=== PATIENT | female | born 1985 | race Caucasian/White ===

== ENCOUNTER 2016-12-01 13:53 | Emergency (ER) | payer MEDICAID ==
[~2016-12-01] VITALS: Ht 160 cm; Wt 57.2 kg
[2016-12-01] MEDS ORDERED: IBUPROFEN600 MG ORAL (14:50)
[2016-12-01 14:56] VITALS: BP 111/71
--- NOTE | 2016-12-01 15:15 | Emergency Room Report ---
History of Present Illness General Chief Complaint: Lower Extremity Injury Source: Patient Present Illness HPI The patient is a 31-year-old female presenting for right ankle pain. She states that she tripped yesterday and felt the ankle folded underneath her. She denies falling. Pain is a 6/10 dull ache and does not radiate. Worse with walking. She denies previous injury to this area. She denies any other symptoms Allergies: Coded Allergies: PENICILLINS (Verified Allergy, Unknown, 12/01/16) Patient History Past Medical History: see triage record Pertinent Family History: none Reviewed Nursing Documentation: PMH: Agreed, PSxH: Agreed Nursing Documentation-PM Past Medical History: No Stated History Review of Systems All Other Systems: negative except mentioned in HPI Physical Exam Vital Signs Date Time Temp Pulse Resp B/P Pulse Ox O2 Delivery O2 Flow Rate FiO2 12/01/16 13:58 97.3 68 20 109/69 99 Room Air Sp02 EP Interpretation: reviewed, normal General Appearance: no apparent distress, alert, GCS 15, non-toxic Head: normocephalic, atraumatic Eyes: bilateral eye PERRL, bilateral eye normal inspection Musculoskeletal: normal inspection, normal range of motion, tender - TTP over the R ankle both medial and lateral Neurologic: alert, oriented x3, responsive, motor strength/tone normal, sensory intact, speech normal Psychiatric: judgement/insight normal, memory normal, mood/affect normal, no suicidal/homicidal ideation Skin: normal color, no rash, warm/dry, well hydrated Procedures Splinting Splinting : Consent: Verbal Location: R ankle Pre-Made Type: ROSEMARY wrap Pre-Proc Neuro Vasc Exam: normal Post-Proc Neuro Vasc Exam: normal Patient Tolerated: Well Complications: None Medical Decision Making PA Attestation Dr. Milligan is my supervising physician. Patient management was discussed with my supervising physician Diagnostic Impression: Primary Impression: Ankle sprain Qualified Codes: S93.401A - Sprain of unspecified ligament of right ankle, initial encounter ER Course The patient is a 31-year-old female presenting for right ankle pain. Ddx considered include but not limited to sprain/strain, fracture, contusion Physical exam: No apparent distress Right ankle: There is tenderness to palpation over the R medial and lateral malleolus. No edema. Full active range of motion. Sensation intact to light touch. X-ray of the R ankle is unremarkable R ankle placed in ROSEMARY wrap. The patient has crutches with her. ER precautions are given. Patient given prescription for Motrin and will follow up with primary care physician. RICE instructions given Other X-Ray Diagnostic Results Other X-Ray Diagnostic Results : X-Ray ordered: R Ankle # of Views/Limited Vs Complete: 3 View Indication: Pain EP Interpretation: Yes Interpretation: no dislocation, no soft tissue swelling, no fractures Impression: No acute disease Interpreting ER Provider: Winston Milligan MD PA Scribe Text I am acting as scribe for my supervising physician. My supervising physician's interpretation of the R ankle xrays are there are no fractures, dislocations or soft tissue swelling. Last Vital Signs Date Time Temp Pulse Resp B/P Pulse Ox O2 Delivery O2 Flow Rate FiO2 12/01/16 14:56 72 18 111/71 99 Room Air 12/01/16 13:58 97.3 Status: improved Disposition: HOME, SELF-CARE Condition: Improved Scripts Ibuprofen* (MOTRIN*) 600 Mg Tablet 600 MG ORAL Q8H Y for For Pain, #30 TAB 0 Refills Prov: SANTANA RILEY 12/01/16 Patient Instructions: Ankle Sprain Additional Instructions: I discussed my findings with the patient. All questions and concerns have been answered. Treatment and medication compliance have been addressed. I advised the patient that they need to follow up with PMD in 3-5 days. Return to ED if pain remains or worsens, numbness or tingling occurs, new rash is noticed, fever is noticed, or if needed for any reason. Patient verbalized understanding of discharge instructions. SANTANA RILEY Dec 01, 2016 15:15
--- NOTE | 2016-12-01 15:15 | Diagnostic Imaging Report ---
Indications: Right ankle pain since trip and fall last night Technique: 3 views right ankle. Findings: Comparison: None No fracture, dislocation, joint space widening , surrounding soft tissue swelling/foreign body/gas, or other acute changes are identified. IMPRESSION: No evidence of acute injury to the right ankle.
== END 2016-12-01 14:57 | disposition home or self-care (01) ==
LOC: EMR 14:15
DX: S93.401A Sprain of unspecified ligament of right ankle, initial encounter (principal); W01.0XXA Fall on same level from slipping, tripping and stumbling without subsequent striking against object, initial encounter; Y93.9 Activity, unspecified; Y92.9 Unspecified place or not applicable; Z88.0 Allergy status to penicillin
CPT/HCPCS: 99283

== ENCOUNTER 2017-05-26 15:43 | Emergency (ER) | payer MEDICAID ==
[~2017-05-26] VITALS: Ht 160 cm; Wt 53.5 kg
[~2017-05-26 15:43] MED LIST: IBUPROFEN600 MG ORAL
[2017-05-26 18:04] LABS: APPEARANCE,URINE CLEAR; BILIRUBIN, URINE NEGATIVE (NEGATIVE); COLOR,URINE PALE YELLOW; GLUCOSE, URINE (UA) NEGATIVE (NEGATIVE); KETONES,URINE NEGATIVE (NEGATIVE); LEUKOCYTE ESTERASE ,URINE NEGATIVE (NEGATIVE); NITRITE,URINE NEGATIVE (NEGATIVE); PH,URINE 7 (4.5-8.0); PROTEIN,URINE NEGATIVE (NEGATIVE); UROBILINOGEN,URINE NORMAL MG/DL (0.0-1.0)
[2017-05-26 18:06] LABS: BASOPHILS % (AUTO) 0.6 % (0.0-2.0); EOSINOPHILS % (AUTO) 1.8 % (0.0-3.0); HEMATOCRIT 40.7 % (37.0-47.0); HEMOGLOBIN 14.7 G/DL (12.0-16.0); LYMPHOCYTES % (AUTO) 32.2 % (20.0-45.0); MEAN CORPUSCULAR VOLUME 91 FL (80-99); MONOCYTES % (AUTO) 13.4 % (1.0-10.0); NEUTROPHILS % (AUTO) 52.1 % (45.0-75.0); PLATELET COUNT 182 K/UL (150-450); RED BLOOD COUNT 4.45 M/UL (4.20-5.40); RED CELL DISTRIBUTION WIDTH 10.6 % (11.6-14.8)
[2017-05-26 18:11] VITALS: BP 92/62
[2017-05-26 18:18] LABS: ANION GAP 9 mmol/L (5-15); BLOOD UREA NITROGEN 13 mg/dL (7-18); CALCIUM 9.1 MG/DL (8.5-10.1); CARBON DIOXIDE 29 MMOL/L (21-32); CHLORIDE 103 MMOL/L (98-107); CREATININE 0.8 MG/DL (0.55-1.30); POTASSIUM 3.3 MMOL/L (3.5-5.1); SODIUM 141 MMOL/L (136-145)
[2017-05-26 18:22] LABS: ALANINE AMINOTRANSFERASE 26 U/L (12-78); ALBUMIN/GLOBULIN RATIO 1.1 (1.0-2.7); ALKALINE PHOSPHATASE 54 U/L (46-116); ASPARTATE AMINO TRANSFERASE 22 U/L (15-37); BILIRUBIN,TOTAL 0.6 MG/DL (0.2-1.0)
[2017-05-26 19:10] VITALS: BP 98/62
--- NOTE | 2017-05-26 22:52 | Emergency Room Report ---
History of Present Illness General Chief Complaint: General Complaint Source: Patient Present Illness HPI 31-year-old female presents ED for evaluation. states for the last several days shes been feeling dizzy. Complaining of vaginal bleeding. Denies chest pain. Denies fevers or chills. States she's been seen at other hospitals for similar presentation. Workups have been negative. No other aggravating relieving factors. Denies any other associated symptoms Allergies: Coded Allergies: PENICILLINS (Verified Allergy, Unknown, 12/01/16) Patient History Past Medical History: none Past Surgical History: none Pertinent Family History: none Social History: Denies: smoking, alcohol use, drug use Last Menstrual Period: 05/23/17 Now: No Immunizations: UTD Reviewed Nursing Documentation: PMH: Agreed, PSxH: Agreed Nursing Documentation-PMH Past Medical History: No Stated History Review of Systems All Other Systems: negative except mentioned in HPI Physical Exam Vital Signs Date Time Temp Pulse Resp B/P (MAP) Pulse Ox O2 Delivery O2 Flow Rate FiO2 05/26/17 15:48 97.5 72 18 123/81 100 Sp02 EP Interpretation: reviewed, normal General Appearance: no apparent distress, alert, GCS 15, non-toxic Head: normocephalic, atraumatic Eyes: bilateral eye normal inspection, bilateral eye PERRL ENT: hearing grossly normal, normal pharynx, no angioedema, normal voice Neck: full range of motion, supple/symm/no masses Respiratory: chest non-tender, lungs clear, normal breath sounds, speaking full sentences Cardiovascular #1: regular rate, rhythm, no edema Cardiovascular #2: 2+ carotid (R), 2+ carotid (L), 2+ radial (R), 2+ radial (L) , 2+ dorsalis pedis (R), 2+ dorsalis pedis (L) Gastrointestinal: normal bowel sounds, non tender, soft, non-distended, no guarding, no rebound Rectal: deferred Genitourinary: normal inspection, no CVA tenderness Musculoskeletal: back normal, gait/station normal, normal range of motion, non- tender Neurologic: alert, oriented x3, responsive, motor strength/tone normal, sensory intact, speech normal Psychiatric: judgement/insight normal, memory normal, mood/affect normal, no suicidal/homicidal ideation Reflexes: 3+ bicep (R), 3+ bicep (L), 3+ tricep (R), 3+ tricep (L), 3+ knee (R) , 3+ knee (L) Skin: normal color, no rash, warm/dry, well hydrated Lymphatic: no adenopathy Medical Decision Making Diagnostic Impression: Primary Impression: Dizziness ER Course Hospital Course 31-year-old female presents ED complaining of dizziness, vaginal bleeding Differential diagnoses include: afib, Vtach, SVT, anxiety, dehydration Clinical course Patient placed on stretcher. After initial history and physical I ordered labs , EKG, IVFs labs reviewed- all electrolytes normal, troponins negative, no leukocytosis, hemoglobin/hematocrit stable EKG - NSR, no acute ischemic changes interpreted by me Discussed findings with the patient. Given negative workup with no risk factors with stable vitals I believe patient be safely discharged to home. Patient agrees with plan. Is requesting referral for PMD I will provide patient with PMD referral I. I feel this is a highly complex case requiring extensive working including EKG/Rhythm strip, Xray/CT/US, Blood/urine lab work, repeat exams while in ED, and administration of strong opiates/narcotics for pain control, admission to hospital or close patient follow up. Diagnosis - dizziness Stable and discharged to home. Instructed to followup with PMD. Return to ED if symptoms recur or worsen Labs Test 05/26/17 17:40 White Blood Count 5.0 K/UL (4.8-10.8) Red Blood Count 4.45 M/UL (4.20-5.40) Hemoglobin 14.7 G/DL (12.0-16.0) Hematocrit 40.7 % (37.0-47.0) Mean Corpuscular Volume 91 FL (80-99) Mean Corpuscular Hemoglobin 33.1 PG (27.0-31.0) Mean Corpuscular Hemoglobin Concent 36.2 G/DL (32.0-36.0) Red Cell Distribution Width 10.6 % (11.6-14.8) Platelet Count 182 K/UL (150-450) Mean Platelet Volume 8.3 FL (6.5-10.1) Neutrophils (%) (Auto) 52.1 % (45.0-75.0) Lymphocytes (%) (Auto) 32.2 % (20.0-45.0) Monocytes (%) (Auto) 13.4 % (1.0-10.0) Eosinophils (%) (Auto) 1.8 % (0.0-3.0) Basophils (%) (Auto) 0.6 % (0.0-2.0) Prothrombin Time 10.7 SEC (9.30-11.50) Prothromb Time International Ratio 1.0 (0.9-1.1) Activated Partial Thromboplast Time 29 SEC (23-33) Urine Color Pale yellow Urine Appearance Clear Urine pH 7 (4.5-8.0) Urine Specific [place] 1.005 (1.005-1.035) Urine Protein Negative (NEGATIVE) Urine Glucose (UA) Negative (NEGATIVE) Urine Ketones Negative (NEGATIVE) Urine Occult Blood 5+ (NEGATIVE) Urine Nitrite Negative (NEGATIVE) Urine Bilirubin Negative (NEGATIVE) Urine Urobilinogen Normal MG/DL (0.0-1.0) Urine Leukocyte Esterase Negative (NEGATIVE) Urine RBC 0-2 /HPF (0 - 2) Urine WBC 0 /HPF (0 - 2) Urine Squamous Epithelial Cells Few /LPF (NONE/OCC) Urine Bacteria Occasional /HPF (NONE) Urine HCG, Qualitative Negative Sodium Level 141 MMOL/L (136-145) Potassium Level 3.3 MMOL/L (3.5-5.1) Chloride Level 103 MMOL/L (98-107) Carbon Dioxide Level 29 MMOL/L (21-32) Anion Gap 9 mmol/L (5-15) Blood Urea Nitrogen 13 mg/dL (7-18) Creatinine 0.8 MG/DL (0.55-1.30) Estimat Glomerular Filtration Rate > 60 mL/min (>60) Glucose Level 76 MG/DL (74-106) Calcium Level 9.1 MG/DL (8.5-10.1) Total Bilirubin 0.6 MG/DL (0.2-1.0) Aspartate Amino Transf (AST/SGOT) 22 U/L (15-37) Alanine Aminotransferase (ALT/SGPT) 26 U/L (12-78) Alkaline Phosphatase 54 U/L (46-116) Troponin I 0.000 ng/mL (0.000-0.056) Total Protein 7.6 G/DL (6.4-8.2) Albumin 4.0 G/DL (3.4-5.0) Globulin 3.6 g/dL Albumin/Globulin Ratio 1.1 (1.0-2.7) Lipase 281 U/L (73-393) EKG Diagnostic Results Rate: normal Rhythm: NSR ST Segments: no acute changes ASA given to the pt in ED: No Rhythm Strip Diag. Results EP Interpretation: yes Rhythm: NSR, no PVC's, no ectopy Last Vital Signs Date Time Temp Pulse Resp B/P (MAP) Pulse Ox O2 Delivery O2 Flow Rate FiO2 05/26/17 19:10 61 18 98/62 100 05/26/17 19:06 97.5 Status: improved Disposition: HOME, SELF-CARE Condition: Stable Referrals: VALDO AFLARO M.D. Patient Instructions: Dizziness, [id number] ESHA VARNER M.D. May 26, 2017 22:52
--- NOTE | 2017-05-28 15:14 | Cardiology Report ---
APPROVED REPORT EKG Measurement Heart [id number] MD [id number] Normal sinus rhythm Normal ECG
== END 2017-05-26 19:12 | disposition home or self-care (01) ==
LOC: EMR 16:05
DX: R42 Dizziness and giddiness (principal); Z88.0 Allergy status to penicillin
CPT/HCPCS: 36415; 80053; 81003; 81025; 83690; 84484; 85025; 85610; 85730; 86850; 86900; 86901; 93005; 96360; 99284

== ENCOUNTER 2018-04-06 16:38 | Emergency (ER) | payer MEDICAID ==
[~2018-04-06] VITALS: Ht 160 cm; Wt 65.8 kg
[2018-04-06] MEDS ORDERED: NKM (16:54)
--- NOTE | 2018-04-06 17:06 | Emergency Room Report ---
History of Present Illness General Chief Complaint: Female Urogenital Problems Source: Patient Present Illness HPI 32-year-old female presents to the emergency department complaining of 7 out of 10 in severity dysuria, hematuria, chills and intermittent episodes of dizziness times just over 2 weeks. Patient reports that she had been diagnosed with UTI by her [facility] [facility] and was placed on Macrobid for which she took and then had follow-up appointment with [facility] C[facility] who performed UA and stated that infection has resolved. Patient states that she continues to have symptoms and believes that she may still have a urinary infection. Patient denies low back pain she denies fevers, nausea, vomiting she reports some mild lower abdominal soreness but she is unable to determine if it is from just giving 5 weeks ago or from possible UTI. pt. had 5 weeks ago, is currently . Allergies: Coded Allergies: AMOXICILLIN (Verified Allergy, Unknown, rash, 04/06/18) NITROFURANTOIN (Verified Allergy, Unknown, 04/06/18) PENICILLINS (Verified Allergy, Unknown, breathing problem, 04/06/18) Patient History Past Medical History: see triage record Past Surgical History: none Pertinent Family History: none Now: No - 5 weeks ago- Reviewed Nursing Documentation: PMH: Agreed; PSxH: Agreed Nursing Documentation-PMH Past Medical History: No History, Except For Review of Systems All Other Systems: negative except mentioned in HPI Physical Exam Vital Signs Date Time Temp Pulse Resp B/P (MAP) Pulse Ox O2 Delivery O2 Flow Rate FiO2 04/06/18 16:49 97.9 76 16 115/78 99 Room Air Sp02 EP Interpretation: reviewed, normal General Appearance: no apparent distress, alert, GCS 15, non-toxic Head: normocephalic, atraumatic Eyes: bilateral eye normal inspection, bilateral eye PERRL ENT: hearing grossly normal, normal voice Neck: full range of motion Respiratory: lungs clear, normal breath sounds, speaking full sentences Cardiovascular #1: regular rate, rhythm Gastrointestinal: normal bowel sounds, non tender, soft Genitourinary: normal inspection, no CVA tenderness Musculoskeletal: back normal, gait/station normal, normal range of motion, non- tender Neurologic: alert, oriented x3, responsive, motor strength/tone normal, sensory intact, normal gait, speech normal, grossly normal Psychiatric: judgement/insight normal Skin: normal color, no rash, warm/dry, well hydrated Medical Decision Making PA Attestation Dr. becerril is my supervising Physician whom patient management has been discussed with. Diagnostic Impression: Primary Impression: Dysuria ER Course 32-year-old female presents to the emergency department complaining of 7 out of 10 in severity dysuria, hematuria, chills and intermittent episodes of dizziness times just over 2 weeks. Patient reports that she had been diagnosed with UTI by her [facility] and was placed on Macrobid for which she took and then had follow-up appointment with [facility] C[facility] who performed UA and stated that infection has resolved. Patient states that she continues to have symptoms and believes that she may still have a urinary infection. Patient denies low back pain she denies fevers, nausea, vomiting she reports some mild lower abdominal soreness but she is unable to determine if it is from just giving 5 weeks ago or from possible UTI. pt. had 5 weeks ago, is currently . Ddx considered but are not limited to UTi , Pyelo, STI, Stone, Cystitis Vital signs: are WNL, pt. is afebrile H&PE are most consistent with UTI ORDERS: - UA labs are attached - WNL no evidence of infection or hematuria. -Urine HCG: Negative ED INTERVENTIONS: None required at this time. DISCHARGE: At this time pt. is stable for d/c to home. Will provide printed patient care instructions, and any necessary prescriptions. Care plan and follow up instructions have been discussed with the patient prior to discharge. Labs Test 04/06/18 16:50 Urine Color Pale yellow Urine Appearance Clear Urine pH 7 (4.5-8.0) Urine Specific [place] 1.005 (1.005-1.035) Urine Protein Negative (NEGATIVE) Urine Glucose (UA) Negative (NEGATIVE) Urine Ketones Negative (NEGATIVE) Urine Blood Negative (NEGATIVE) Urine Nitrite Negative (NEGATIVE) Urine Bilirubin Negative (NEGATIVE) Urine Urobilinogen Normal MG/DL (0.0-1.0) Urine Leukocyte Esterase Negative (NEGATIVE) Urine HCG, Qualitative Negative (NEGATIVE) Last Vital Signs Date Time Temp Pulse Resp B/P (MAP) Pulse Ox O2 Delivery O2 Flow Rate FiO2 04/06/18 16:49 97.9 76 16 115/78 99 Room Air Disposition: HOME, SELF-CARE Condition: Stable Scripts Phenazopyridine Hcl* (PYRIDIUM*) 200 Mg Tablet 200 MG ORAL THREE TIMES A DAY, #4 TAB 0 Refills Prov: Laurence Olivo 04/06/18 Patient Instructions: Dysuria Additional Instructions: Take medications as directed. Pyridium will cause your urine to change color (Red/[place]), this is a normal effect of the medication. Please hold while taking this medication. Follow up with a Primary Care Provider in 3-5 days, even if your symptoms have resolved. --Please review list of primary care clinics, if you do not already have a primary care provider Return sooner to ED if new symptoms occur, or current symptoms become worse. - Please note that this Emergency Department Report was dictated using [employer] nurse technology software, occasionally this can lead to erroneous entry secondary to interpretation by the dictation equipment. Laurence Olivo Apr 06, 2018 17:06
[2018-04-06] MEDS: Phenazopyridine 200mg tab ORAL ONE ×2 (17:17→17:35)
[2018-04-06 17:20] LABS: APPEARANCE,URINE CLEAR; BILIRUBIN, URINE NEGATIVE (NEGATIVE); COLOR,URINE PALE YELLOW; GLUCOSE, URINE (UA) NEGATIVE (NEGATIVE); KETONES,URINE NEGATIVE (NEGATIVE); LEUKOCYTE ESTERASE ,URINE NEGATIVE (NEGATIVE); NITRITE,URINE NEGATIVE (NEGATIVE); PH,URINE 7 (4.5-8.0); PROTEIN,URINE NEGATIVE (NEGATIVE); UROBILINOGEN,URINE NORMAL MG/DL (0.0-1.0)
[2018-04-06 17:33] VITALS: BP 115/78
[2018-04-06] MEDS ORDERED: PHENAZOPYRIDIN200 MG ORAL (18:38)
[2018-04-06 19:23] VITALS: BP 115/78
== END 2018-04-06 19:25 | disposition home or self-care (01) ==
LOC: EMR 17:26
DX: R30.0 Dysuria (principal); R31.9 Hematuria, unspecified; R68.83 Chills (without fever); R42 Dizziness and giddiness; Z88.0 Allergy status to penicillin
CPT/HCPCS: 81003; 81025; 99283

== ENCOUNTER 2018-04-17 02:24 | Emergency (ER) | payer MEDICAID ==
[~2018-04-17] VITALS: Ht 160 cm; Wt 65.8 kg
[~2018-04-17 02:24] MED LIST changes: +NKM; +PHENAZOPYRIDIN200 MG ORAL
[2018-04-17 02:50] VITALS: BP 118/82
--- NOTE | 2018-04-17 02:57 | Emergency Room Report ---
History of Present Illness General Chief Complaint: Chest Pain Source: Patient Present Illness [facility] This is a 32-year-old female with recent vaginal delivery. She presents with chief complaint of chest pain. Pain is for almost 12 hours now. As the upper mid chest and right area. Sharp in nature. No radiation. No nausea no vomiting. No fever chills. No redness to the breasts or nipple area. She is breast-feeding and bottlefeeding. She also felt weak and tired. Denies any other complaint. Pain is 7 out of 10. Allergies: Coded Allergies: AMOXICILLIN (Verified Allergy, Unknown, rash, 04/06/18) NITROFURANTOIN (Verified Allergy, Unknown, 04/06/18) PENICILLINS (Verified Allergy, Unknown, breathing problem, 04/06/18) Patient History Past Medical History: none, see triage record, old chart reviewed Past Surgical History: none Pertinent Family History: none Social History: Denies: smoking Last Menstrual Period: n/a Now: No : 1 Para: 1 Immunizations: other Reviewed Nursing Documentation: PMH: Agreed; PSxH: Agreed Nursing Documentation-PMH Past Medical History: No History, Except For Review of Systems Eye: Denies: eye pain, blurred vision ENT: Denies: ear pain, nose congestion, throat swelling Respiratory: Denies: cough, shortness of breath Cardiovascular: Reports: chest pain; Denies: palpitations Gastrointestinal: Denies: abdominal pain, diarrhea, nausea, vomiting Musculoskeletal: Denies: back pain, joint pain Skin: Denies: rash Neurological: Denies: headache, numbness Endocrine: Denies: increased thirst, increased urine Hematologic/Lymphatic: Denies: easy bruising All Other Systems: negative except mentioned in HPI Physical Exam Vital Signs Date Time Temp Pulse Resp B/P (MAP) Pulse Ox O2 Delivery O2 Flow Rate FiO2 04/17/18 02:27 98.1 81 15 118/82 99 Room Air vitals normal Sp02 EP Interpretation: reviewed, normal General Appearance: well appearing, no apparent distress, alert Head: normocephalic, atraumatic Eyes: bilateral eye PERRL, bilateral eye EOMI ENT: hearing grossly normal, normal pharynx Neck: full range of motion, supple, no meningismus Respiratory: chest non-tender, lungs clear, normal breath sounds Cardiovascular #1: regular rate, rhythm, no murmur Gastrointestinal: normal bowel sounds, non tender, no mass, no organomegaly, no bruit, non-distended Musculoskeletal: back normal, gait/station normal, normal range of motion Psychiatric: mood/affect normal Skin: warm/dry Medical Decision Making Diagnostic Impression: Primary Impression: Chest pain Qualified Codes: R07.9 - Chest pain, unspecified ER Course patient presents with atypical chest pain. No evidence of any ACS, PE, dissection. She's not tachycardic, hypoxic, or tachypneic. No evidence of CHF. We'll discharge home. EKG Diagnostic Results Rate: normal Rhythm: NSR ST Segments: no acute changes Rhythm Strip Diag. Results Rhythm Strip Time: 02:57 EP Interpretation: yes Rate: 65 Rhythm: NSR, no PVC's Last Vital Signs Date Time Temp Pulse Resp B/P (MAP) Pulse Ox O2 Delivery O2 Flow Rate FiO2 04/17/18 02:50 98.1 73 15 118/82 99 Room Air Status: improved Disposition: HOME, SELF-CARE Condition: Stable Scripts Ibuprofen* (MOTRIN*) 600 Mg Tablet 600 MG ORAL THREE TIMES A DAY, #30 TAB 0 Refills Prov: Shashank Lawrence MD 04/17/18 Patient Instructions: Nonspecific Chest Pain Additional Instructions: Follow-up with your doctor in 7 days. Increase fluids. Return if symptom worsen. Shashank Lawrence MD Apr 17, 2018 02:57
[2018-04-17] MEDS ORDERED: Ketorolac 30mg Inj IV ONE (03:00)
[2018-04-17 03:13] LABS: APPEARANCE,URINE CLEAR; BILIRUBIN, URINE NEGATIVE (NEGATIVE); COLOR,URINE PALE YELLOW; GLUCOSE, URINE (UA) NEGATIVE (NEGATIVE); KETONES,URINE NEGATIVE (NEGATIVE); LEUKOCYTE ESTERASE ,URINE NEGATIVE (NEGATIVE); NITRITE,URINE NEGATIVE (NEGATIVE); PH,URINE 6 (4.5-8.0); PROTEIN,URINE NEGATIVE (NEGATIVE); UROBILINOGEN,URINE NORMAL MG/DL (0.0-1.0)
[2018-04-17 03:14] LABS: BASOPHILS % (AUTO) 0.5 % (0.0-2.0); EOSINOPHILS % (AUTO) 2.4 % (0.0-3.0); HEMATOCRIT 37.7 % (37.0-47.0); HEMOGLOBIN 12.9 G/DL (12.0-16.0); LYMPHOCYTES % (AUTO) 27.4 % (20.0-45.0); MEAN CORPUSCULAR VOLUME 90 FL (80-99); MONOCYTES % (AUTO) 7.5 % (1.0-10.0); NEUTROPHILS % (AUTO) 62.2 % (45.0-75.0); PLATELET COUNT 206 K/UL (150-450); RED BLOOD COUNT 4.19 M/UL (4.20-5.40); RED CELL DISTRIBUTION WIDTH 10.7 % (11.6-14.8); WHITE BLOOD COUNT 7.4 K/UL (4.8-10.8)
[2018-04-17 03:24] LABS: ANION GAP 9 mmol/L (5-15); BLOOD UREA NITROGEN 14 mg/dL (7-18); CALCIUM 9.4 MG/DL (8.5-10.1); CARBON DIOXIDE 28 MMOL/L (21-32); CHLORIDE 103 MMOL/L (98-107); CREATININE 0.9 MG/DL (0.55-1.30); POTASSIUM 3.4 MMOL/L (3.5-5.1); SODIUM 140 MMOL/L (136-145)
[2018-04-17] MEDS ORDERED: IBUPROFEN600 MG ORAL (03:49)
[2018-04-17 03:59] VITALS: BP 118/82
== END 2018-04-17 04:00 | disposition home or self-care (01) ==
LOC: EMR 02:43
DX: R07.89 Other chest pain (principal); Z88.0 Allergy status to penicillin; Z88.8 Allergy status to other drugs, medicaments and biological substances
CPT/HCPCS: 36415; 80048; 81001; 84484; 85025; 93005; 96361; 96374; 99284; J1885

== ENCOUNTER 2018-07-31 04:39 | Emergency (ER) | payer MEDICAID ==
[~2018-07-31] VITALS: Ht 160 cm; Wt 61.7 kg
--- NOTE | 2018-07-31 04:59 | NUR ---
ED Nurse Note: PT CAME TO ED FROM HOME C/O ABD PAIN 08/24 SINCE 0300 YESTERDAY. PER PT SHE HAS BEEN EXPERIENCNIG N/V/D FREQUENTLY. URINE IS GREEN TINTED AND STOOL YELLOW IN COLOR PER PT.
[2018-07-31 05:01] VITALS: BP 109/74
[2018-07-31 05:28] LABS: HEMATOCRIT 43.3 % (37.0-47.0); HEMOGLOBIN 15.1 G/DL (12.0-16.0); MEAN CORPUSCULAR VOLUME 87 FL (80-99); PLATELET COUNT 172 K/UL (150-450); RED BLOOD COUNT 4.96 M/UL (4.20-5.40); RED CELL DISTRIBUTION WIDTH 11.3 % (11.6-14.8); WHITE BLOOD COUNT 7.8 K/UL (4.8-10.8)
[2018-07-31 05:28] LABS: APPEARANCE,URINE CLEAR; BILIRUBIN, URINE NEGATIVE (NEGATIVE); COLOR,URINE PALE YELLOW; GLUCOSE, URINE (UA) NEGATIVE (NEGATIVE); KETONES,URINE NEGATIVE (NEGATIVE); LEUKOCYTE ESTERASE ,URINE 1+ (NEGATIVE); NITRITE,URINE NEGATIVE (NEGATIVE); PH,URINE 6 (4.5-8.0); PROTEIN,URINE NEGATIVE (NEGATIVE); UROBILINOGEN,URINE NORMAL MG/DL (0.0-1.0)
[2018-07-31 05:50] LABS: ALANINE AMINOTRANSFERASE 21 U/L (12-78); ALBUMIN 3.9 G/DL (3.4-5.0); ALKALINE PHOSPHATASE 81 U/L (46-116); ANION GAP 11 mmol/L (5-15); ASPARTATE AMINO TRANSFERASE 18 U/L (15-37); BILIRUBIN,TOTAL 2.1 MG/DL (0.2-1.0); BLOOD UREA NITROGEN 7 mg/dL (7-18); CALCIUM 8.7 MG/DL (8.5-10.1); CARBON DIOXIDE 24 MMOL/L (21-32); CHLORIDE 98 MMOL/L (98-107); POTASSIUM 2.8 MMOL/L (3.5-5.1); SODIUM 134 MMOL/L (136-145)
--- NOTE | 2018-07-31 06:00 | NUR ---
ED Nurse Note: OCCULT BLOOD STOOL TEST COMPELTED, THEE AWARE OF RESULTS
[2018-07-31] MEDS ORDERED: BACTRIM-DS1 EA ORAL (06:07)
[2018-07-31] MEDS ORDERED: METRONIDAZOLE500 MG ORAL (06:07)
[2018-07-31 06:13] LABS: BILIRUBIN,DIRECT 0.3 MG/DL (0.0-0.3)
[2018-07-31] MEDS ORDERED: Dicyclomine HCl 10mg/5ml oral soln ONE (06:27)
[2018-07-31] MEDS ORDERED: Dicyclomine HCl 10mg/5ml oral soln ORAL ONE (06:30)
[2018-07-31] MEDS ORDERED: ZOFRAN4 MG ORAL (06:31)
[2018-07-31] MEDS ORDERED: DICYCLOMINE HCL10 MG PO (06:31)
--- NOTE | 2018-07-31 06:31 | NUR ---
ED Nurse Note: US TECH HAS BEEN PAGED. AWAITING FOR ARRIVAL
--- NOTE | 2018-07-31 06:32 | Emergency Room Report ---
History of Present Illness General Chief Complaint: Abdominal Pain Source: Patient (Al Wellington MD) Present Illness HPI Patient is a 32-year-old female presented after increased abdominal pain and vomiting and diarrhea. This had onset approximate 24 hours prior to arrival. Patient reports of increased abdominal cramping. She reports having generalized pain to the upper abdomen. This was described as twisting in nature. She had prior history of Mixed connective tissue disorder. 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 she reports having fever up to 102 degrees. She reports having some vomiting with yellow emesis. She reports having green diarrhea with frequent episodes. Patient had patient had not been having any hematemesis or bloody stools.She reports taking Tylenol for fever. (Al Wellington MD) Allergies: Coded Allergies: AMOXICILLIN (Verified Allergy, Unknown, rash, 04/06/18) NITROFURANTOIN (Verified Allergy, Unknown, 04/06/18) PENICILLINS (Verified Allergy, Unknown, breathing problem, 04/06/18) SILICONE (Verified Allergy, Unknown, 07/31/18) Patient History Past Medical History: see triage record Last Menstrual Period: One week ago Now: No Reviewed Nursing Documentation: PMH: Agreed; PSxH: Agreed (lA Wellington MD) Review of Systems All Other Systems: negative except mentioned in HPI (Al Wellington MD) Physical Exam Vital Signs Date Time Temp Pulse Resp B/P (MAP) Pulse Ox O2 Delivery O2 Flow Rate FiO2 07/31/18 04:42 97.5 104 18 109/74 97 Room Air Sp02 EP Interpretation: reviewed, normal General Appearance: normal inspection, well appearing, no apparent distress, alert, GCS 15 Head: atraumatic ENT: normal ENT inspection, hearing grossly normal, normal voice Neck: normal inspection, full range of motion, supple, no bony tend Respiratory: normal inspection, lungs clear, normal breath sounds, no respiratory distress, no retraction, no wheezing Cardiovascular #1: regular rate, rhythm, no edema Gastrointestinal: normal inspection, normal bowel sounds, non tender, soft, no guarding, no hernia Genitourinary: no CVA tenderness Musculoskeletal: normal inspection, back normal, normal range of motion Neurologic: normal inspection, alert, oriented x3, responsive, mill dresser III-XII nml as tested, speech normal Psychiatric: normal inspection, judgement/insight normal, mood/affect normal Skin: normal inspection, normal color, no rash (Al Wellington MD) Medical Decision Making Diagnostic Impression: Primary Impression: Gastroenteritis ER Course Patient presented for abdominal pain. Differential diagnoses included ischemic bowel, appendicitis, perforated viscus, abdominal aortic aneurysm, inferior myocardial infarction, viral gastroenteritis among others. Because of complexity of patient's case laboratory testing and imaging studies were ordered. Laboratory studies were notable for normal white blood count. Patient noted to have normal liver function test as well as hypokalemia. Bilirubin was noted to be elevated. Patient was given IV Zofran as well as IV fluids and oral potassium.Patient was not noted to have any significant abdominal tenderness. patient was noted to have some fever which is concerning for possible bacterial enteritis. Abdominal ultrasound was ordered due to patient's elevated bilirubin level. Anticipate the patient will be discharged home. Labs Test 07/31/18 04:54 07/31/18 04:55 07/31/18 05:10 Urine Color Pale yellow Urine Appearance Clear Urine pH 6 (4.5-8.0) Urine Specific [place] 1.005 (1.005-1.035) Urine Protein Negative (NEGATIVE) Urine Glucose (UA) Negative (NEGATIVE) Urine Ketones Negative (NEGATIVE) Urine Blood Negative (NEGATIVE) Urine Nitrite Negative (NEGATIVE) Urine Bilirubin Negative (NEGATIVE) Urine Urobilinogen Normal MG/DL (0.0-1.0) Urine Leukocyte Esterase 1+ (NEGATIVE) Urine RBC 0-2 /HPF (0 - 2) Urine WBC 2-4 /HPF (0 - 2) Urine Squamous Epithelial Cells Few /LPF (NONE/OCC) Urine Bacteria Few /HPF (NONE) Urine HCG, Qualitative Negative (NEGATIVE) White Blood Count 7.8 K/UL (4.8-10.8) Red Blood Count 4.96 M/UL (4.20-5.40) Hemoglobin 15.1 G/DL (12.0-16.0) Hematocrit 43.3 % (37.0-47.0) Mean Corpuscular Volume 87 FL (80-99) Mean Corpuscular Hemoglobin 30.5 PG (27.0-31.0) Mean Corpuscular Hemoglobin Concent 34.9 G/DL (32.0-36.0) Red Cell Distribution Width 11.3 % (11.6-14.8) Platelet Count 172 K/UL (150-450) Mean Platelet Volume 8.4 FL (6.5-10.1) Neutrophils (%) (Auto) % (45.0-75.0) Lymphocytes (%) (Auto) % (20.0-45.0) Monocytes (%) (Auto) % (1.0-10.0) Eosinophils (%) (Auto) % (0.0-3.0) Basophils (%) (Auto) % (0.0-2.0) Sodium Level 134 MMOL/L (136-145) Potassium Level 2.8 MMOL/L (3.5-5.1) Chloride Level 98 MMOL/L (98-107) Carbon Dioxide Level 24 MMOL/L (21-32) Anion Gap 11 mmol/L (5-15) Blood Urea Nitrogen 7 mg/dL (7-18) Creatinine 1.0 MG/DL (0.55-1.30) Estimat Glomerular Filtration Rate > 60 mL/min (>60) Glucose Level 108 MG/DL (74-106) Calcium Level 8.7 MG/DL (8.5-10.1) Total Bilirubin 2.1 MG/DL (0.2-1.0) Direct Bilirubin 0.3 MG/DL (0.0-0.3) Aspartate Amino Transf (AST/SGOT) 18 U/L (15-37) Alanine Aminotransferase (ALT/SGPT) 21 U/L (12-78) Alkaline Phosphatase 81 U/L (46-116) Total Protein 7.8 G/DL (6.4-8.2) Albumin 3.9 G/DL (3.4-5.0) Globulin 3.9 g/dL Albumin/Globulin Ratio 1.0 (1.0-2.7) Lipase 201 U/L (73-393) Lactic Acid Level 0.90 mmol/L (0.4-2.0) (Al Wellington MD) ER Course This patient was turned over to me by Dr. Wellington. The patient was awaiting a right upper quadrant ultrasound given the elevated bilirubin. The right upper quadrant ultrasound was unremarkable. See official report in the electronic medical record. I reviewed the patient's labs and are also unremarkable. I reassessed the patient's abdomen and it was benign. I suspect gastroenteritis and colitis. Please see Dr. Wellington's note for further medical decision-making. The patient is discharged with close return precautions and follow-up instructions. (Deirdre Rios DO) CT/MRI/US Diagnostic Results CT/MRI/US Diagnostic Results : Imaging Test Ordered: US RUQ Impression No acute findings. See official report in the electronic medical record. (Deirdre Rios DO) Last Vital Signs Date Time Temp Pulse Resp B/P (MAP) Pulse Ox O2 Delivery O2 Flow Rate FiO2 07/31/18 05:01 97.5 104 18 109/74 97 Room Air Status: improved (Al Wellington MD) Disposition: HOME, SELF-CARE Condition: Stable Scripts Dicyclomine Hcl* (DICYCLOMINE HCL*) 10 Mg Capsule 10 MG PO QID for pain, #30 CAP Prov: Al Wellington MD 07/31/18 Ondansetron (Zofran) 4 Mg Tablet 4 MG ORAL Q6H PRN for Nausea & Vomiting, #30 TAB 0 Refills Prov: Al Wellington MD 07/31/18 Trimethoprim/Sulfamethoxazole (Bactrim Ds Tablet) 1 Each Tablet 1 TAB ORAL TWICE A DAY, #14 TAB Prov: Al Wellington MD 07/31/18 Metronidazole* (FLAGYL*) 500 Mg Tablet 500 MG ORAL THREE TIMES A DAY, #21 TAB 0 Refills Prov: Al Wellington MD 07/31/18 Patient Instructions: Abdominal Pain, Adult Al Wellington MD Jul 31, 2018 06:32 Deirdre Rios DO Jul 31, 2018 08:44
--- NOTE | 2018-07-31 07:08 | NUR ---
HAND-OFF: Report given to MORRO PRADO.
[2018-07-31 07:10] VITALS: BP 112/80
--- NOTE | 2018-07-31 07:15 | NUR ---
ED Nurse Note: Received pt from [place] RN, pt resting on bed with VSS. Waiting for US.
--- NOTE | 2018-07-31 07:22 | NUR ---
ED Nurse Note: US staff at the bed side.
--- NOTE | 2018-07-31 08:05 | NUR ---
ED Nurse Note: Dr Blanca palomares for pt to eat or drink at this time. Pt provided with juice and water.
[2018-07-31 09:38] VITALS: BP 106/58
--- NOTE | 2018-07-31 09:38 | NUR ---
ER DISCHARGE NOTE: Patient is cleared to be discharged per ERMD, pt is aox4, on room air, with stable vital signs. pt was given dc and prescription instructions, pt was able to verbalize understanding, pt id band and iv site removed without complications. pt is able to ambulate with steady gait. pt took all belongings.
--- NOTE | 2018-07-31 09:38 | Diagnostic Imaging Report ---
Indication: Abdominal pain, abnormal liver function tests, lipase 201 Technique: Chen-scale and duplex images of the upper abdomen were obtained Comparison: none Findings: Gallbladder is unremarkable, without stones, wall thickening, nor pericholecystic fluid. Sonographic Caro's sign is negative. Common bile duct measures 3 mm in diameter. No intrahepatic biliary ductal dilatation. Liver demonstrates normal echogenicity, no focal abnormality. Portal vein and hepatic veins are patent. Pancreas is unremarkable. Spleen is unremarkable. Left kidney measures 11 cm in length. Right kidney measures 9.3 cm length. Both kidneys demonstrate normal echogenicity. There is no hydronephrosis. No focal abnormality . Non-aneurysmal abdominal aorta . Impression: Negative
== END 2018-07-31 09:38 | disposition home or self-care (01) ==
LOC: EMR 04:54
DX: K52.9 Noninfective gastroenteritis and colitis, unspecified (principal); Z88.0 Allergy status to penicillin; Z88.8 Allergy status to other drugs, medicaments and biological substances; E87.6 Hypokalemia
CPT/HCPCS: 36415; 76700; 80053; 81003; 81025; 82248; 83605; 83690; 85025; 86850; 86900; 86901; 87040; 96361; 96374; 96375; 99284; J2405; S0028; J8499

== ENCOUNTER → 2019-09-24 | Outpatient (CLI) | payer MEDICAID ==
[~2019-09-24] MED LIST changes: +BACTRIM-DS1 EA ORAL; +BCP; +DICYCLOMINE HCL10 MG PO; +DIPHENHYDRAMINE25 M1 ORAL; +HYDROXYCHLOROQ200 M1 PO; +METRONIDAZOLE500 MG ORAL; +OMEPRAZOLE20 M2 ORAL; +PROBIOTIC1 EAC3 PO; +VITAMIN B COMP1 EAC2 ORAL; +ZOFRAN4 MG ORAL
[2019-09-24 14:57] VITALS: BP 88/65
--- NOTE | 2019-09-24 16:45 | Consultation ---
DATE OF CONSULTATION: 09/24/2019 CONSULTING PHYSICIAN: Kelvin Toledo MD. CHIEF COMPLAINT: Diarrhea. HISTORY OF PRESENT ILLNESS: This is a very pleasant 34-year-old female with numerous medical problems, which I will dictate in a second, but most concerned will be hematological disease including history of connective tissue disease presented to us for evaluation of diarrhea. This started about April 2018. According to her was on and off in last year, but since June of this year has become more prominent, mostly watery bowel movement, nonbloody. Patient went through lactose-free diet without any significant improvement, went through gluten-free diet without any much of improvement. We reviewed the medication list with the patient one by one and we did not find any of the medication related to diarrhea. So, patient was referred here for evaluation for diarrhea. PAST MEDICAL HISTORY: 1. Hemorrhoids. 2. Thyroid disease, most probably hypothyroidism. 3. Anxiety. 4. Neuropathy. 5. Mixed connective tissue disease. PAST SURGICAL HISTORY: Thyroid cyst removed. MEDICATIONS: Please see medication reconciliation list. FAMILY HISTORY: No family history of GI malignancies. SOCIAL HISTORY: Patient denies any tobacco, alcohol, or drug abuse. ALLERGIES: To penicillin and sulfa. REVIEW OF SYSTEMS: Positive for abdominal pain, GERD, diarrhea, constipation, weight loss of 10 pounds, loss of appetite. PHYSICAL EXAMINATION: VITAL SIGNS: Temperature 97.7, blood pressure is 88/66, pulse 70, respirations 20. HEENT: Normocephalic, atraumatic. Sclerae are anicteric. NECK: Supple. No evidence of obvious lymphadenopathy. CARDIOVASCULAR: Regular rate and rhythm. Plus S1-S2. LUNGS: Clear to auscultation bilaterally. ABDOMEN: Positive bowel sounds. Soft and nontender. No rebound. No guarding. No peritoneal sign. EXTREMITIES: No cyanosis. No clubbing. No edema. ASSESSMENT AND PLAN: This is a 34-year-old female with mixed connective tissue disease with chronic diarrhea. We reviewed the medications one by one and the timing of it does not seems to be related to medications. We also went over the diet including lactose-free diet and gluten-free diet and that does not seem to be changing the symptoms. We will offer the patient to have a colonoscopy for rule out microscopic colitis. We also going to recommend the patient to be on a regular gluten diet and get a celiac panel check. Patient will do the blood tests and will come back for colonoscopy when the authorization is obtained. Also, patient was told to follow with her rehabilitation aide regarding hypothyroidism being the cause of her symptoms given the patient is having weight loss, palpitations, diarrhea that all might be related to hypothyroidism. Patient will consult with her rehabilitation aide. Kelvin Toledo M.D. DR: NORTH JOB#: [id number] CC:
== END | disposition home or self-care (01) ==
LOC: PAN 09:31
DX: R19.7 Diarrhea, unspecified (principal); F41.9 Anxiety disorder, unspecified; G62.9 Polyneuropathy, unspecified; M35.1 Other overlap syndromes; Z88.0 Allergy status to penicillin; Z88.2 Allergy status to sulfonamides; K21.9 Gastro-esophageal reflux disease without esophagitis; R10.9 Unspecified abdominal pain; K59.00 Constipation, unspecified; R63.4 Abnormal weight loss
CPT/HCPCS: G0463

== ENCOUNTER 2019-12-19 13:10 | Outpatient (CLI) | payer MEDICAID ==
[2019-12-24 10:22] VITALS: BP 92/60
--- NOTE | 2019-12-25 13:51 | General Progress Note ---
Assessment/Plan Problem List: (1) Gastroenteritis ICD Codes: K52.9 - Noninfective gastroenteritis and colitis, unspecified SNOMED: 83420826 (2) Dizziness ICD Codes: R42 - Dizziness and giddiness SNOMED: 975882220, 262677614 (3) Ankle sprain ICD Codes: S93.409A - Sprain of unspecified ligament of unspecified ankle, initial encounter SNOMED: 13154799 Assessment/Plan: chronic diarrhea s/p colonoscopy VSL3# 3 Xifaxan RTC prn Subjective ROS Limited/Unobtainable: Yes Allergies: Coded Allergies: AMOXICILLIN (Verified Allergy, Unknown, rash, 04/06/18) NITROFURANTOIN (Verified Allergy, Unknown, 04/06/18) PENICILLINS (Verified Allergy, Unknown, breathing problem, 04/06/18) SILICONE (Verified Allergy, Unknown, 07/31/18) Objective General Appearance: alert EENT: PERRL/EOMI Neck: supple Cardiovascular: normal rate Respiratory/Chest: decreased breath sounds Abdomen: normal bowel sounds, non tender, soft Extremities: non-tender Kelvin Toledo MD Dec 25, 2019 13:51
== END 2019-12-19 15:10 | disposition home or self-care (01) ==
LOC: PAN 13:10
DX: K52.9 Noninfective gastroenteritis and colitis, unspecified (principal); R42 Dizziness and giddiness; S93.409A Sprain of unspecified ligament of unspecified ankle, initial encounter; Z88.0 Allergy status to penicillin; R19.7 Diarrhea, unspecified; X58.XXXA Exposure to other specified factors, initial encounter; Y92.9 Unspecified place or not applicable
CPT/HCPCS: 99212

== ENCOUNTER 2020-03-23 14:13 | Outpatient (CLI) | payer MEDICAID ==
--- NOTE | 2020-03-25 15:52 | General Progress Note ---
Subjective ROS Limited/Unobtainable: Yes Allergies: Coded Allergies: AMOXICILLIN (Verified Allergy, Unknown, rash, 04/06/18) NITROFURANTOIN (Verified Allergy, Unknown, 04/06/18) PENICILLINS (Verified Allergy, Unknown, breathing problem, 04/06/18) SILICONE (Verified Allergy, Unknown, 07/31/18) Objective General Appearance: alert EENT: normal ENT inspection Neck: supple Cardiovascular: normal rate Respiratory/Chest: decreased breath sounds Abdomen: normal bowel sounds, non tender, soft Extremities: non-tender Assessment/Plan Assessment/Plan: Problem List: (1) Gastroenteritis ICD Codes: K52.9 - Noninfective gastroenteritis and colitis, unspecified SNOMED: 56489277 (2) Dizziness ICD Codes: R42 - Dizziness and giddiness SNOMED: 336270803, 879382069 (3) Ankle sprain ICD Codes: S93.409A - Sprain of unspecified ligament of unspecified ankle, initial encounter SNOMED: 91633422 Assessment/Plan: chronic diarrhea s/p colonoscopy VSL3# 3 Xifaxan stool for HP garafate RTC prn Kelvin Toledo MD Mar 25, 2020 15:52
== END 2020-03-23 16:13 | disposition home or self-care (01) ==
LOC: PAN 14:13
DX: K52.9 Noninfective gastroenteritis and colitis, unspecified (principal); R42 Dizziness and giddiness; S93.409A Sprain of unspecified ligament of unspecified ankle, initial encounter; R19.7 Diarrhea, unspecified; Z88.0 Allergy status to penicillin; Z88.8 Allergy status to other drugs, medicaments and biological substances
CPT/HCPCS: 99212